=== PATIENT | female | born 1970 | race Caucasian/White ===

== ENCOUNTER → 2018-07-20 | Day surgery (SDC) | payer OTHER ==
[~2018-07-20] MED LIST: ACETAMINOPHEN650 MG RC; CALCIUM 500+D1 EACH; CEFAZOLIN SOD 2 GM/D5W 50ML 50 ML IV ONE; DEXAMETHASONE SOD PHOS INJ 4 MG/ML VIAL ONE; EPHEDRINE SULFATE INJ 50 MG/10 ML SYR ONE; FENTANYL CITRATE/PF 100MCG/2 ML INJ ONE; GLYCOPYRROLATE INJ 1MG/ 5 ML SYR ONE; IBUPROFEN400 MG PO; LIDOCAINE 2%/ EPINEPHRINE 20ML MDV ONE; LIDOCAINE HCL 2% LOCAL INJ 5 ML SDV VIAL INJ ONE; MIDAZOLAM HCL 2 MG/2 ML VIAL ONE; NEOSTIGMINE 5 MG/5ML SYR ONE; OMEGA 3 1,0001 EACH; ONDANSETRON HCL INJ 2 MG/ML VIAL ONE; OSTEO BI-FLEX1 EAC2; PHENYLEPHRINE HCL 1% 10 MG/ML VIAL ONE; PROPOFOL IV EMULSION 10 MG/ML 20 ML VIAL ONE; ROCURONIUM BROMIDE 10 MG/ML 5ML VIAL ONE; ROPIVACAINE 0.5% 5 MG/ML 30 ML SDV ONE; SEVOFLURANE INHAL SOLN 250 ML PEN BTL ONE; TYLENOL WITH C1 EACH PO; ULTRAM50 MG PO
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
--- NOTE | 2018-07-20 10:33 | Diagnostic Imaging Report ---
A single frontal view of the chest. HISTORY: Right clavicle fracture, PACU, RULE OUT PNEUMOTHORAX COMPARISON: Right rib series is similar 2017. DISCUSSION: Portable technique, limits sensitivity of the exam. Soft tissue attenuation further limits sensitivity of the exam. Overlying artifacts and monitoring leads. Tubes/Lines: None Lungs and pleura: Low lung volumes result in bibasilar vascular crowding, accentuation of the pulmonary interstitial markings, central pulmonary vasculature, and the cardiac silhouette. Allowing for these limitations, the findings are as follows: Bibasilar atelectasis. No evidence of a consolidative pneumonia or pulmonary alveolar edema. No definite pleural effusion or pneumothorax is identified. Heart and mediastinum: The cardiac silhouette is partially obscured. Bones: No acute osseous lesion is identified, given this limited exam. Status post ORIF of the right clavicle fracture of the plate and screw construct. Multiple right rib fracture deformities, the first through fourth. IMPRESSION: 1. No evidence of a pneumothorax. 2. Unhealed right first through fourth rib fractures. 3. Status post-ORIF of the right clavicle. Signed by: Dr. Ishaan Pelayo D.O., M.M.M. on 07/20/2018 10:30 AM
[2018-07-20 11:00] VITALS: BP 137/84
--- NOTE | 2018-07-21 13:11 | Operative Report ---
DATE OF PROCEDURE: July 20, 2018 PREOPERATIVE DIAGNOSIS: Displaced right clavicle fracture. POSTOPERATIVE DIAGNOSIS: Displaced right clavicle fracture. OPERATION/PROCEDURE PERFORMED: The patient underwent open reduction internal patient of a displaced right clavicle fracture. SERVOMECHANISM DESIGNER: Latrice Bishop ANESTHESIA: General endotracheal intubation anesthesia. IV FLUIDS: Per the anesthesia record. BRIEF DESCRIPTION OF THE PATIENT'S OPERATIVE PROCEDURE: Ms. Fisher was taken to the operating room and placed in the supine position on the operating table. Following induction of general anesthesia, as well as endotracheal intubation, the patient's right upper extremity was examined under anesthesia. She was found to have a deformity involving the right clavicle. The skin was tented, but there was no penetration of the clavicle at the level of the fracture site. Fluoroscopic evaluation of the patient's fracture demonstrated a midshaft clavicle fracture with significant displacement. The patient's upper extremity was prepped and draped in the standard surgical fashion. The case was begun by creating an incision overlying the clavicle. This incision was carried through skin only. Blunt dissection was used to deepen the incision to the level of the clavicle itself. The fracture site was isolated, and Freers were used to elevate the soft tissues from the dorsal anterior aspects of the clavicle. The fracture was then reduced and held in reduced position while a 6-hole locking plate was affixed to the clavicle. The initial plate fixation was done in compression at the level of the fracture site. The remaining holes were filled primarily with locking screws. The fracture was then visualized using fluoroscopy and found to be reduced. The wound was copiously irrigated. The soft tissues were then closed in a multilayer fashion. Sterile dressings were applied. The patient was also provided a shoulder immobilizer, awakened and taken to the postanesthesia care in stable condition. Latrice Bishop acted as expanded function dental assistant for this case, and was necessary for prepping and draping the patient, as well as retracting soft tissues to allow this case to be successful. Job#: [id number]
== END | disposition home or self-care (01) ==
LOC: OR 05:29
PROVIDERS: ATTEND Specialist
DX: S42.021A Displaced fracture of shaft of right clavicle, initial encounter for closed fracture (principal); S22.42XA Multiple fractures of ribs, left side, initial encounter for closed fracture; S92.351A Displaced fracture of fifth metatarsal bone, right foot, initial encounter for closed fracture; V86.55XA Driver of 3- or 4- wheeled all-terrain vehicle (ATV) injured in nontraffic accident, initial encounter; Y92.89 Other specified places as the place of occurrence of the external cause; Y99.8 Other external cause status; Z68.32 Body mass index [BMI] 32.0-32.9, adult
CPT/HCPCS: 23515; 71045; 71111; 76001; C1713 ×4; J0690; J1100; J2001 ×2; J2250; J2370; J2405; J2704; J2795; J3490